=== PATIENT | male | born 1985 | race Caucasian/White ===

== ENCOUNTER → 2021-04-30 | Day surgery (SDC) | payer OTHER ==
[~2021-04-30] VITALS: Ht 178 cm; Wt 93.9 kg
[2021-04-30 07:05] LABS: HGB 14.4 g/dl (13.2-18.0); MCH 29.6 pg (25.0-31.0); MCHC 35.1 g/dL (32.0-36.0); MCV 84.4 fL (78.0-100.0); MPV 9.7 fL (6.0-9.5); RBC 4.86 M/uL (4.70-6.00); RDW 13.3 % (11.5-14.0); WBC 7.6 K/uL (4.0-10.5)
[2021-04-30 07:09] LABS: ALBUMIN 3.9 g/dL (3.4-5.0); BILIRUBIN - TOTAL 0.5 mg/dL (0.2-1.0); BUN/CREAT RATIO (CALC) 15.2 RATIO; CREATININE 0.66 mg/dL (0.67-1.17); GLOBULIN (CALCULATION) 3.9 g/dL; POTASSIUM 3.9 mmol/L (3.5-5.1); TOTAL PROTEIN 7.8 g/dL (6.4-8.2)
== END | disposition home or self-care (01) ==
LOC: FAS 06:04
PROVIDERS: Orthopaedic Surgery
DX: G56.02 Carpal tunnel syndrome, left upper limb (principal); K58.9 Irritable bowel syndrome, unspecified; F17.290 Nicotine dependence, other tobacco product, uncomplicated
CPT/HCPCS: 36415; 80053; J2250; J2405; J2704; J3010; J7120